=== PATIENT | male | born 1950 | race Caucasian/White ===

== ENCOUNTER 2020-10-23 15:05 | Emergency (ER) | payer MEDICARE, OTHER ==
[~2020-10-23] VITALS: Ht 167 cm; Wt 63.0 kg
[2020-10-23] MEDS ORDERED: NS IV 1000 ML 1,000 ML IV STA (15:24)
[2020-10-23 15:26] LABS: HEMATOCRIT 43 % (40-54); HEMOGLOBIN 14.2 G/DL (13.3-17.7); LYMPHOCYTES % (AUTO) 25 % (12-44); MEAN CORPUSCULAR HEMOGLOBIN 32 PG (25-34); MEAN CORPUSCULAR HGB CONC 33 G/DL (32-36); MEAN CORPUSCULAR VOLUME 97 FL (80-99); MEAN PLATELET VOLUME 9.4 FL (7.4-10.4); MONOCYTES % (AUTO) 12 % (0-12); NEUTROPHILS % (AUTO) 60 % (42-75); PLATELET COUNT 259 10^3/uL (130-400); WHITE BLOOD COUNT 7.6 10^3/uL (4.3-11.0)
[2020-10-23 15:27] LABS: BASOPHILS # (AUTO) 0.1 10^3/uL (0.0-0.1); BASOPHILS % (AUTO) 1 % (0-10); EOSINOPHILS # (AUTO) 0.3 10^3/uL (0.0-0.3); EOSINOPHILS % (AUTO) 3 % (0-10); LYMPHOCYTES # (AUTO) 1.9 X 10^3 (1.0-4.0); MONOCYTES # (AUTO) 0.9 X 10^3 (0.0-1.0); NEUTROPHILS # (AUTO) 4.6 X 10^3 (1.8-7.8)
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
[2020-10-23] MEDS ORDERED: IOHEXOL 350 MG/ML 100 ML (OMNIPAQUE 350) VIAL IV ONE (15:45)
[2020-10-23] MEDS ORDERED: CATHETER FLUSH 10 ML SYR IV PRN (15:45)
[2020-10-23] MEDS ORDERED: HOLD METFORMIN - RECEIVED CONTRAST 20 ML VIAL IV SCH (15:45)
[2020-10-23] MEDS ORDERED: NS 100 ML (IVPB) BAG IV ONE (15:45)
[2020-10-23 15:54] LABS: SODIUM 141 MMOL/L (135-145)
[2020-10-23 15:55] LABS: ALANINE AMINOTRANSFERASE 18 U/L (0-55); ALBUMIN 4.2 GM/DL (3.2-4.5); ALKALINE PHOSPHATASE 77 U/L (40-136); BILIRUBIN,TOTAL 0.3 MG/DL (0.1-1.0); BUN/CREATININE RATIO 19; CALCIUM 9.3 MG/DL (8.5-10.1); CARBON DIOXIDE 25 MMOL/L (21-32); CHLORIDE 107 MMOL/L (98-107); CREATININE SERUM 0.93 MG/DL (0.60-1.30); GFR ESTIMATED > 60; GLUCOSE 122 MG/DL (70-105); LIPASE 29 U/L (8-78); POTASSIUM 4.2 MMOL/L (3.6-5.0)
--- NOTE | 2020-10-23 16:38 | Diagnostic Imaging Report ---
EXAMINATION: CT abdomen and pelvis with intravenous contrast. TECHNIQUE: Multiple contiguous axial images were obtained through the abdomen and pelvis after the uneventful administration of intravenous contrast. All CT scans use one or more of the following dose optimizing techniques: automated exposure control, MA and/or KvP adjustment based on patient size and exam type or iterative reconstruction. HISTORY: Right lower quadrant. COMPARISON: None available. FINDINGS: Limited views of the lower thorax show pacemaker leads. There are abdominal collaterals and dilation of the azygos vein suggestive of superior vena cava syndrome. There is thickening of the gastroesophageal junction. The liver is normal without focal lesion. There is no biliary ductal dilation. Gallbladder is normal. Pancreas is normal. Spleen is normal. Adrenal glands are normal. The kidneys are normal. There is no hydronephrosis. Urinary bladder is normal. There is a fat-containing left inguinal hernia. Visualized bowel is normal in caliber without obstruction or inflammation. The appendix is normal. No free fluid or air. No abdominal or pelvic lymphadenopathy. Aorta is normal in caliber without aneurysm. There are no suspicious osseus lesions. IMPRESSION: 1. Normal appendix. 2. Dilated azygos vein and collaterals in the anterior abdominal wall suggestive of superior vena cava syndrome, potentially related to the pacemaker leads. Consider chest CT with contrast for further evaluation. 3. Thickening of the gastroesophageal junction. If the patient has had a prior hiatal hernia repair. This may be responsible for the appearance. Otherwise consider endoscopy to evaluate for underlying mass. Dictated by: Dictated on workstation # [id number]
[2020-10-23 17:20] VITALS: BP 124/73
== END 2020-10-23 17:20 | disposition home or self-care (01) ==
LOC: ER FS 15:08
DX: R10.31 Right lower quadrant pain (principal); I10 Essential (primary) hypertension; Z88.8 Allergy status to other drugs, medicaments and biological substances
CPT/HCPCS: 36415; 74177; 80053; 83690; 85025

== ENCOUNTER → 2021-04-07 | Outpatient (CLI) | payer MEDICARE ==
--- NOTE | 2021-04-07 08:49 | Diagnostic Imaging Report ---
INDICATION: CALLUS OF FOOT, PAIN IN RIGHT TOE, HISTORY OF INJURY TECHNIQUE: AP right foot with 3 views of the right 2nd toe CORRELATION STUDY: None FINDINGS: There is normal alignment and appearance of the osseous structures of the right foot. There is moderate degenerative changes at the 1st MTP joint which includes joint space narrowing and osteophyte formation. Mild hypertrophic change of the sesamoid bones. The 2nd digit is in normal alignment. No acute bony abnormality. Joint spaces maintained.. The soft tissues are unremarkable. IMPRESSION: 1. Negative for acute bony abnormality of the right 2nd toe. 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 Dictated by: Dictated on workstation # [id number]
== END ==
LOC: RAD FS 08:28
PROVIDERS: ATTEND Nurse Practitioner Family
DX: M19.071 Primary osteoarthritis, right ankle and foot (principal); L84 Corns and callosities; Z87.828 Personal history of other (healed) physical injury and trauma
CPT/HCPCS: 73660